=== PATIENT | male | born 1985 | race American Indian/Alaskan Native ===

== ENCOUNTER 2018-09-03 01:04 | Emergency (ER) | payer OTHER ==
[2018-09-03 01:10] VITALS: BP 144/91
--- NOTE | 2018-09-03 01:45 | XRay Report ---
PROCEDURE: XR HAND 2V LT TECHNIQUE: LEFT hand radiographs, PA and lateral views. HISTORY: left thump pain COMPARISONS: None . FINDINGS: Fracture (s) and/or Dislocation(s): None . Alignment: Normal . Joint space(s): Normal . Soft tissues: Normal . Bone mineralization: Normal . Foreign bodies: None . IMPRESSION: Normal Examination . This document is electronically signed by Julian Caal MD., Sep 03 2018 01:42:40 AM ET
--- NOTE | 2018-09-03 03:15 | Emergency Department Report ---
ED Upper Extremity Inj HPI - General Chief Complaint: Extremity Injury, Upper Stated Complaint: FINGER INJURY Time Seen by Provider: 09/03/18 03:00 Source: patient Mode of arrival: Ambulatory Limitations: No Limitations - History of Present Illness Initial Comments: Pt is a 33 yo male who presents to the ED with c/o smashing his left thumb into the car door that occurred 3 days ago. The patient denies any laceration or abrasion. He denies any numbness or weakness. pt states he tried to stick a needle into the nail. he denies any pmhx. - Related Data Previous Rx's Medication Instructions Recorded Last Taken Type Ibuprofen 800 mg PO Q6HR PRN #20 tablet 09/03/18 Unknown Rx cephALEXin [Keflex] 500 mg PO BID 5 Days #10 cap 09/03/18 Unknown Rx Allergies Allergy/AdvReac Type Severity Reaction Status Date / Time No Known Allergies Allergy Unverified 11/19/14 17:38 ED Review of Systems ROS: Stated complaint: FINGER INJURY Other details as noted in HPI Comment: All other systems reviewed and negative ED Past Medical Hx - Past Medical History Previous Medical History?: No - Surgical History Past Surgical History?: No - Social History Smoking Status: Current Every Day Smoker Substance Use Type: None - Medications Home Medications: Home Medications Medication Instructions Recorded Confirmed Last Taken Type Ibuprofen 800 mg PO Q6HR PRN #20 tablet 09/03/18 Unknown Rx cephALEXin [Keflex] 500 mg PO BID 5 Days #10 cap 09/03/18 Unknown Rx ED Physical Exam - General Limitations: No Limitations General appearance: alert, in no apparent distress - Head Head exam: Present: atraumatic, normocephalic - Eye Eye exam: Present: normal appearance - ENT ENT exam: Present: mucous membranes moist - Extremities Exam Extremities exam: Present: other (TTP over the distal end of the left thumb, FROM of the left thumb with pain, subungual hematoma present to the left thumbnail, small hole in the nail present, no erythema or edema of the digit) - Neurological Exam Neurological exam: Present: alert, oriented X3 - Psychiatric Psychiatric exam: Present: normal affect, normal mood - Skin Skin exam: Present: warm, dry ED Course Vital Signs 09/03/18 01:09 Temperature 98.1 F Pulse Rate 85 Respiratory 18 Rate Blood Pressure 144/91 O2 Sat by Pulse 98 Oximetry ED Medical Decision Making - Radiology Data Radiology results: report reviewed XR of the left hand with no acute process - Medical Decision Making Pt is a 33 yo male who presents to the ED with c/o smashing his left thumb into the car door that occurred 3 days ago. The patient denies any laceration or abrasion. He denies any numbness or weakness. pt states he tried to stick a needle into the nail. he denies any pmhx. XR of the left hand with no acute process. on examination pt has a subungual hematoma and a small hole present, no signs of active infection. pt given keflex due to increased risk of infection by pt attempting to place hole in the nail at home. advised to take medication as prescribed. discussed to rest and ice the thumb. follow up with primary care doctor in the next 2-3 days. follow up with orthopedic doctor if sx not resolving. return to the emergency room for any new or worsening symptoms. Critical care attestation.: If time is entered above; I have spent that time in minutes in the direct care of this critically ill patient, excluding procedure time. ED Disposition Clinical Impression: Subungual hematoma Thumb injury Qualifiers: Encounter type: initial encounter Laterality: left Qualified Code(s): S69.92XA - Unspecified injury of left wrist, hand and finger(s), initial encounter Disposition: - TO HOME OR SELFCARE Is pt being admited?: No Does the pt Need Aspirin: No Condition: Stable Instructions: Subungual Hematoma (ED) Additional Instructions: Please take medication as prescribed. Please take antibiotic since you created a hole in the nail to avoid infection. Follow up with a primary care doctor in the next 2-3 days. Use ice and rest. Follow up with Dr. De La Cruz, orthopedic as needed. Return to the emergency room for any new or worsening symptoms. Prescriptions: Ibuprofen 800 mg PO Q6HR PRN #20 tablet PRN Reason: Pain, Moderate (4-6) cephALEXin [Keflex] 500 mg PO BID 5 Days #10 cap Referrals: ZHOU DEL CASTILLO MD [Primary Care Provider] - 2-3 Days DILEEP DE LA CRUZ MD [Staff Physician] - as needed Time of Disposition: 03:16 Print Language: BELARUSIAN
== END 2018-09-03 03:24 | disposition home or self-care (01) ==
LOC: ED 01:04
DX: S69.92XA Unspecified injury of left wrist, hand and finger(s), initial encounter (principal); S60.012A Contusion of left thumb without damage to nail, initial encounter; F17.200 Nicotine dependence, unspecified, uncomplicated; W22.8XXA Striking against or struck by other objects, initial encounter; Y93.89 Activity, other specified; Y92.89 Other specified places as the place of occurrence of the external cause; Y99.8 Other external cause status

== ENCOUNTER 2022-01-06 00:55 | Emergency (ER) | payer SELFPAY ==
[2022-01-06] MEDS ORDERED: IBUPROFEN 800 MG TAB PO ONE (07:41)
[2022-01-06] MEDS ORDERED: BENZONATATE 100 MG CAP PO ONE (07:41)
--- NOTE | 2022-01-06 08:14 | Emergency Department Report ---
- General Chief Complaint: Upper Respiratory Infection Stated Complaint: COUGH/CHILLS/BACK PAIN Time Seen by Provider: 01/06/22 07:27 Source: patient Mode of arrival: Ambulatory Limitations: No Limitations - History of Present Illness Initial Comments: This is a 36-year-old male nontoxic, well nourished in appearance, no acute signs of distress presents to the ED with c/o of productive cough, chills, body aches, rhinorrhea, nasal congestion x several days. Patient describes productive cough as yellow mucus production. Patient denies any sick contacts. Denies being fully COVID vaccinated. Patient denies any recent travels, long car, recent hospital stays. Patient denies any calf pain or calf tenderness. Patient denies any chest pain, short of breath, chills, nausea, vomiting, hemoptysis, numbness, tingling, headache or stiff neck. Patient denies any allergies or significant past medical history. MD Complaint: cough, rhinorrhea, nasal congestion -: days(s) Severity: mild Severity scale (0 -10): 8 Quality: aching Consistency: constant Improves With: nothing Worsens With: nothing Associated Symptoms: chills, rhinorrhea, nasal congestion, cough. denies: fever, myalgias, diaphoresis, headache, sore throat, stiff neck, chest pain, shortness of breath, abdominal pain, nausea, vomiting, diarrhea, dysuria, rash, confusion, right sweats, weight loss, epistaxis, hoarseness, ear pain Treatments Prior to Arrival: none - Related Data Previous Rx's Medication Instructions Recorded Last Taken Type Ibuprofen [Ibuprofen 800] 800 mg PO Q6HR PRN #20 tablet 09/03/18 Unknown Rx cephALEXin [Keflex] 500 mg PO BID 5 Days #10 cap 09/03/18 Unknown Rx Albuterol Mdi (or & Nicu Only) 2 puff IH QID PRN #8.5 gram 01/06/22 Unknown Rx [ProAir HFA Inhaler] Benzonatate [Tessalon Perles] 100 mg PO Q8HR PRN #12 cap 01/06/22 Unknown Rx Allergies Allergy/AdvReac Type Severity Reaction Status Date / Time No Known Allergies Allergy Unverified 11/19/14 17:38 ED Review of Systems ROS: Stated complaint: COUGH/CHILLS/BACK PAIN Other details as noted in HPI Constitutional: chills. denies: fever Eyes: denies: eye pain, eye discharge, vision change ENT: congestion. denies: ear pain, throat pain Respiratory: cough. denies: shortness of breath, wheezing Cardiovascular: denies: chest pain, palpitations Endocrine: no symptoms reported Gastrointestinal: denies: abdominal pain, nausea, diarrhea Genitourinary: denies: urgency, dysuria Musculoskeletal: denies: back pain, joint swelling, arthralgia Skin: denies: rash, lesions Neurological: denies: headache, weakness, paresthesias Psychiatric: denies: anxiety, depression Hematological/Lymphatic: denies: easy bleeding, easy bruising ED Past Medical Hx - Past Medical History Previous Medical History?: Yes Additional medical history: BRONCHCITIS - Surgical History Past Surgical History?: No - Social History Smoking Status: Former Smoker Substance Use Type: None - Medications Home Medications: Home Medications Medication Instructions Recorded Confirmed Last Taken Type Ibuprofen [Ibuprofen 800] 800 mg PO Q6HR PRN #20 tablet 09/03/18 Unknown Rx cephALEXin [Keflex] 500 mg PO BID 5 Days #10 cap 09/03/18 Unknown Rx Albuterol Mdi (or & Nicu Only) 2 puff IH QID PRN #8.5 gram 01/06/22 Unknown Rx [ProAir HFA Inhaler] Benzonatate [Tessalon Perles] 100 mg PO Q8HR PRN #12 cap 01/06/22 Unknown Rx ED Physical Exam - General Limitations: No Limitations General appearance: alert, in no apparent distress - Head Head exam: Present: atraumatic, normocephalic - Eye Eye exam: Present: normal appearance - ENT ENT exam: Present: normal exam, normal orophraynx, TM's normal bilaterally, normal external ear exam - Neck Neck exam: Present: normal inspection, full ROM. Absent: tenderness, meningismus, lymphadenopathy - Respiratory Respiratory exam: Present: normal lung sounds bilaterally. Absent: respiratory distress, wheezes, rales, rhonchi, stridor, chest wall tenderness, accessory muscle use, decreased breath sounds, prolonged expiratory - Cardiovascular Cardiovascular Exam: Present: normal rhythm, tachycardia, normal heart sounds. Absent: irregular rhythm, systolic murmur, diastolic murmur, rubs, gallop - GI/Abdominal GI/Abdominal exam: Present: soft, normal bowel sounds. Absent: distended, tenderness, guarding, rebound, rigid, diminished bowel sounds - Extremities Exam Extremities exam: Present: full ROM - Back Exam Back exam: Present: full ROM - Neurological Exam Neurological exam: Present: alert, oriented X3, normal gait - Psychiatric Psychiatric exam: Present: normal affect, normal mood - Skin Skin exam: Present: warm, dry, intact, normal color. Absent: rash ED Course Vital Signs 01/06/22 01/06/22 01:17 10:05 Temperature 98.6 F 98.6 F Pulse Rate 112 H 92 H Respiratory 18 18 Rate Blood Pressure 138/98 Blood Pressure 131/87 [Left] O2 Sat by Pulse 95 95 Oximetry - Reevaluation(s) Reevaluation #1: 01/06/22 08:14 Patient is speaking in full sentences with no signs of distress noted. Reevaluation #2: 01/06/22 10:04 At discharge, patient requested for Albuterol Inh refill. ED Medical Decision Making - Radiology Data [facility] [address] [place] [address] XRay Report Signed Patient: MAHESH CAOSTA MR#: [id number] : 1985 Acct:[id number] Age/Sex: 36 / M ADM Date: 01/06/22 Loc: ED Attending Dr: Ordering Physician: SHARAD LABOY NP Date of Service: 01/06/22 Procedure(s): XR chest routine 2V Accession Number(s): [id number] cc: SHARAD LABOY NP Fluoro Time In Minutes: CHEST 2 VIEWS INDICATION / CLINICAL INFORMATION: cough. COMPARISON: None available. FINDINGS: SUPPORT DEVICES: None. HEART / MEDIASTINUM: No significant abnormality. LUNGS / PLEURA: No significant pulmonary or pleural abnormality. No pneumothorax. ADDITIONAL FINDINGS: No significant additional findings. IMPRESSION: 1. No acute findings. Signer Name: Pj Leal MD Signed: 01/06/2022 8:34 AM Workstation Name: [id number] Transcribed By: DT Dictated By: Adán Leal MD Electronically Authenticated By: Adán Leal MD Signed Date/Time: 01/06/22833 DD/ 3 TD/TT: - Medical Decision Making This is a 36-year-old male that presents with suspected covid. Patient is stable and was examined by me. Chest x-ray has been obtained and dictated by radiologist with normal exam. Patient is notified of x-ray results with no questions noted. Patient does meet clinical concerns of COVID-19 and patient was instructed and educated on signs and symptoms and to self quarantine and seek medical attention as soon as possible if symptoms worsen and continue. Patient was instructed to increase hydration, rest and take Motrin for fever episodes. Patient received motrin and tesslone perrls in the ED. Vitals stable. Patient is nonfebrile and normal heart rate. Patient was instructed Follow-up with a primary care doctor in 3-5 days or if symptoms worsen and continue return to emergency room as soon as possible. At time time of discharge, the patient does not seem toxic or ill in appearance. No acute signs of distress noted. Patient agrees to discharge treatment plan of care. No further questions noted by the patient.nt. Critical care attestation.: If time is entered above; I have spent that time in minutes in the direct care of this critically ill patient, excluding procedure time. ED Disposition Clinical Impression: Suspected COVID-19 virus infection Disposition: HOME / SELF CARE / HOMELESS Is pt being admited?: No Does the pt Need Aspirin: No Condition: Stable Instructions: COVID-19 Frequently Asked Questions Additional Instructions: Follow-up with a primary care doctor in 3-5 days or if symptoms worsen and continue return to emergency room as soon as possible. Your symptoms appear most consistent with suspected COVID. Despite your previous negative COVID-19 test, I do recommend repeat outpatient Covid 19 testing. In the meantime, isolate/quarantine yourself and stay away from anyone who is elderly, immunocompromised or chronically ill. Please see your nearest health department or primary care doctor that you are referred to for COVID testing. Increased rest, hydration, and take [id number] Tylenol as directed from instructions label for pain/fever episode. Prescriptions: Albuterol Mdi (or & Nicu Only) [ProAir HFA Inhaler] 2 puff IH QID PRN #8.5 gram PRN Reason: Shortness Of Breath Benzonatate [Tessalon Perles] 100 mg PO Q8HR PRN #12 cap PRN Reason: Cough Referrals: PRIMARY CARE, [Primary Care Provider] - 3-5 Days DAVONTE LEMON MD [Staff Physician] - 3-5 Days Time of Disposition: 09:10
--- NOTE | 2022-01-06 08:38 | XRay Report ---
CHEST 2 VIEWS INDICATION / CLINICAL INFORMATION: cough. COMPARISON: None available. FINDINGS: SUPPORT DEVICES: None. HEART / MEDIASTINUM: No significant abnormality. LUNGS / PLEURA: No significant pulmonary or pleural abnormality. No pneumothorax. ADDITIONAL FINDINGS: No significant additional findings. IMPRESSION: 1. No acute findings. Signer Name: Pj Leal MD Signed: 01/06/2022 8:34 AM Workstation Name: [id number]
[2022-01-06 10:06] VITALS: BP 131/87
== END 2022-01-06 10:06 | disposition home or self-care (01) ==
LOC: ED 00:55
DX: R05.9 Cough, unspecified (principal); R09.81 Nasal congestion; Z20.822 Contact with and (suspected) exposure to COVID-19; Z87.891 Personal history of nicotine dependence
CPT/HCPCS: 71046; 99283